=== PATIENT | female | born 1990 | race Caucasian/White ===

== ENCOUNTER 2019-05-26 19:26 | Emergency (ER) | payer MEDICAID ==
[~2019-05-26] VITALS: Ht 170.2 cm; Wt 72.6 kg
[2019-05-26 19:48] VITALS: BP 120/78
--- NOTE | 2019-05-26 19:48 | NUR ---
28 Y/O FEMALE C/OPT IN TRIAGE APPEARS TO BE ANXIOUS WITH CONSTANT MOVMENT AND SMACKING OF LIPS. PT STATES SHE IS HERE FOR ABCCESS OF HER R LEG. PT STATES SHE HAS HAD IT FOR TWO WEEKS BUT HAS NOW BECOME VERY PAINFUL. PT ADMITS TO IV HEROIN DRUG USE. SEVERAL ABCESS NOTED TO R LEG. PAIN IS A 7/10 RADIATING PAIN THROUGHOUT THE RIGHT LEG. ERMD MADE AWARE. PATIENT SITTING AT BEDSIDE. PMH: SCHIZOPHRENIA ALLERGIES: NKA RX: HALDOL; ZYPREXA; GABAPENTIN;TRAZADONE.
--- NOTE | 2019-05-26 20:18 | NUR ---
PATIENT AMBULATED TO ER BED 5
[2019-05-26] MEDS ORDERED: cefTRIAXone 1,000 MG in LIDOCAINE MPF 1% 2.1 ML IM ONE (20:35)
[2019-05-26] MEDS ORDERED: KETOROLAC 30 MG/ML VIAL IM ONE (20:35)
[2019-05-26 20:56] VITALS: BP 120/78
--- NOTE | 2019-05-26 20:56 | NUR ---
Patient discharged with v/s stable. Written and verbal after care instructions given and explained. Patient alert, oriented and verbalized understanding of instructions. Ambulatory with steady gait. All questions addressed prior to discharge. ID band removed. Patient advised to follow up with PMD. Rx of BACTRIM DS 800MG; ACETAMINOPHEN 500MG; KEFLEX 500MG given. Patient educated on indication of medication including possible reaction and side effects. Opportunity to ask questions provided and answered.
== END 2019-05-26 20:56 | disposition home or self-care (01) ==
LOC: MED 19:26
DX: L03.115 Cellulitis of right lower limb (principal); F15.90 Other stimulant use, unspecified, uncomplicated
CPT/HCPCS: 96372; 99283; J0696; J1885; J2001